=== PATIENT | male | born 1950 | race Caucasian/White ===

== ENCOUNTER 2018-11-02 13:27 | Emergency (ER) | payer MEDICARE, OTHER ==
[~2018-11-02 13:27] MED LIST: ASPIR LOW81 MG PO; BENADRYL ALLERG25 M2; CLOPIDOGREL; CO Q-1010 M2; LOVAZA1 G1; METFORMIN HYDR500 MG; MINIPRESS1 M1; STOOL SOFTENER100 MG; SYNTHROID25 MCG; ZANTAC 7575 M1
[2018-11-02] MEDS ORDERED: NORCO 325 MG-51 TA1 PO (13:59)
[2018-11-02] MEDS ORDERED: CEPHALEXIN500 M1 PO (13:59)
[2018-11-02 14:26] VITALS: BP 138/88
== END 2018-11-02 14:12 | disposition home or self-care (01) ==
LOC: ED 13:27
DX: S50.11XA Contusion of right forearm, initial encounter (principal); I25.10 Atherosclerotic heart disease of native coronary artery without angina pectoris; M21.379 Foot drop, unspecified foot; Z79.02 Long term (current) use of antithrombotics/antiplatelets; Z90.49 Acquired absence of other specified parts of digestive tract; Z95.2 Presence of prosthetic heart valve; W01.0XXA Fall on same level from slipping, tripping and stumbling without subsequent striking against object, initial encounter; Y92.009 Unspecified place in unspecified non-institutional (private) residence as the place of occurrence of the external cause